=== PATIENT | female | born 1950 | race Caucasian/White ===

== ENCOUNTER 2019-01-03 13:35 | Emergency (ER) | payer OTHER ==
[~2019-01-03] VITALS: Ht 165.1 cm; Wt 105.2 kg
[~2019-01-03 13:35] MED LIST: ACYCLOVIR800 MG PO; ADVAIR 2501 DISK W/1 IH; AMITRIPTYLINE H25 MG PO; FLUCONAZOLE200 MG PO; LOTRIMIN15 GM TP; MEDROL PACK PO; METHYLPRED4 MG/DOSE- PO; NABUMETONE500 MG PO; NEURONTIN300 MG PO; PERCOCET 5/321 UDTAB PO; PREDNISONE10 MG PO; PROVENTIL2.5 MG/3 M IH; SINGULAIR10 MG PO; SYNTHROID50 MCG PO; TUSSIONEX PENNKI5 ML PO; ZOCOR5 MG PO
[2019-01-03] MEDS ORDERED: ULTRACET PO (22:01)
== END 2019-01-03 22:09 | disposition home or self-care (01) ==
LOC: ER 13:35
DX: L97.318 Non-pressure chronic ulcer of right ankle with other specified severity (principal); L08.89 Other specified local infections of the skin and subcutaneous tissue; B95.61 Methicillin susceptible Staphylococcus aureus infection as the cause of diseases classified elsewhere; B96.89 Other specified bacterial agents as the cause of diseases classified elsewhere

== ENCOUNTER 2019-01-25 12:30 | Outpatient (CLI) | payer OTHER ==
[~2019-01-25 12:30] MED LIST changes: +ULTRACET PO
== END 2019-01-25 12:46 | disposition home or self-care (01) ==
LOC: NUCLEAR 12:30
DX: I83.013 Varicose veins of right lower extremity with ulcer of ankle (principal); E66.3 Overweight

== ENCOUNTER 2019-01-26 10:42 | Outpatient (CLI) | payer OTHER | END 2019-01-26 10:47 | disposition home or self-care (01) | LOC: NUCLEAR 10:42 | DX: I83.013 Varicose veins of right lower extremity with ulcer of ankle (principal); I70.231 Atherosclerosis of native arteries of right leg with ulceration of thigh; I70.241 Atherosclerosis of native arteries of left leg with ulceration of thigh ==

== ENCOUNTER 2019-05-16 09:14 | Outpatient (CLI) | payer OTHER | END 2019-05-16 09:16 | disposition home or self-care (01) | LOC: RAD 09:14 | DX: I70.218 Atherosclerosis of native arteries of extremities with intermittent claudication, other extremity (principal); I10 Essential (primary) hypertension; E78.2 Mixed hyperlipidemia; E11.51 Type 2 diabetes mellitus with diabetic peripheral angiopathy without gangrene; E03.8 Other specified hypothyroidism; K21.9 Gastro-esophageal reflux disease without esophagitis; K57.30 Diverticulosis of large intestine without perforation or abscess without bleeding; R13.19 Other dysphagia; D46.Z Other myelodysplastic syndromes; M12.862 Other specific arthropathies, not elsewhere classified, left knee; J44.1 Chronic obstructive pulmonary disease with (acute) exacerbation; J45.50 Severe persistent asthma, uncomplicated; L98.8 Other specified disorders of the skin and subcutaneous tissue; T21.12XA Burn of first degree of abdominal wall, initial encounter; E55.9 Vitamin D deficiency, unspecified; E53.8 Deficiency of other specified B group vitamins; Z68.41 Body mass index [BMI] 40.0-44.9, adult ==